=== PATIENT | male | born 1985 | race Caucasian/White ===

== ENCOUNTER 2017-02-11 04:23 | Emergency (ER) | payer BC ==
[2017-02-11 05:50] LABS: #Basophils 0.1 thou/uL (0.0-0.2); #Eosinphils 0.2 thou/uL (0.0-0.7); #Lymphocytes 3.1 thou/uL (1.20-3.40); #Monocytes 0.7 thou/uL (0.11-0.59); #Neutrophils 4.9 thou/uL (1.40-6.50); %Basophils 1.2 % (0.0-1.0); %Eosinophils 1.9 % (0.0-10.0); %Lymphocytes 34.8 % (21.0-51.0); %Monocytes 7.6 % (0.0-10.0); Hematocrit 45.9 % (42.0-52.0); Mean Platelet Volume 8.1 fL (7.4-10.4); Red Blood Cell (RBC) Count 4.81 mill/uL (4.70-6.10)
[2017-02-11] MEDS ORDERED: Ketorolac Tromethamine 30 MG/ML VIAL ONE (06:00)
[2017-02-11 06:13] LABS: Anion Gap 13 mmol/L (10-20); BUN (Urea Nitrogen) 9 mg/dL (8.9-20.6); Calc. Creatinine Clearance 0 mL/min (70-130); Calcium 9.5 mg/dL (7.8-10.44); Carbon Dioxide 23 mmol/L (22-29); Chloride 104 mmol/L (98-107); Estimated GFR-MDRD Greater than 90
[2017-02-11 06:26] LABS: Bilirubin Negative (Negative); Blood, Urine Negative (Negative); Glucose, Urine (Dipstick) Negative (Negative); Ketone, Urine Negative (Negative); Nitrite Negative (Negative); Protein, Urine (Dipstick) Negative (Neg-Trace)
[2017-02-11] MEDS ORDERED: Ondansetron HCl/PF 4 MG/2 ML Vial ONE ×2 (06:36→06:57)
[2017-02-11] MEDS ORDERED: Morphine 10 MG/ML VIAL ONE (06:36)
[2017-02-11] MEDS ORDERED: methylPREDNISolone Sod Succ/PF 125 MG/2 ML VIAL ONE (06:36)
[2017-02-11] MEDS ORDERED: Water For Inject, Bacteriostat 30 ML ONE (06:36)
--- NOTE | 2017-02-11 14:07 | CT ---
PRELIMINARY REPORT/[facility]/EMERGENCY AFTER HOURS PROCEDURE: EXAM: CT Abdomen and Pelvis Without Intravenous Contrast EXAM DATE/TIME: Exam ordered 02/11/2017 5:53 AM CLINICAL HISTORY: 31 years old, male; Pain; Abdominal pain; Flank; Left; Patient HX: R/O stone TECHNIQUE: Axial computed tomography images of the abdomen and pelvis without intravenous contrast. Coronal reformatted images were created and reviewed. COMPARISON: No relevant prior studies available. FINDINGS: Lower thorax: The visualized portions of the lung bases are normal. ABDOMEN: Liver: There are no focal liver lesions present. Gallbladder and bile ducts: The gallbladder is normal. There is no evidence of biliary ductal dilati on. No calcified stones. Pancreas: The pancreas is normal. No ductal dilation. Spleen: The spleen is normal. Adrenals: The adrenal glands are normal. Kidneys and ureters: The kidneys are normal. No obstructing stones. No hydronephrosis. Stomach and bowel: The duodenum is unremarkable. The stomach is normal. The colon is normal. No obstruction. No mucosal thickening. Appendix: A normal appendix is identified. PELVIS: Bladder: The bladder is normal. No stones. Reproductive: The prostate gland and seminal vesicles are normal. ABDOMEN and PELVIS: Intraperitoneal space: Normal. No free air. No significant fluid collection. Bones/joints: No acute fracture. No dislocation. Soft tissues: Normal. Vasculature: Normal. No abdominal aortic aneurysm. Lymph nodes: Normal. No enlarged lymph nodes. IMPRESSION: No acute abdominal pelvic pathology. Thank you for allowing us to participate in the care of your patient. Dictated and Authenticated by: Jc Arrington MD 02/11/2017 6:16 AM Central Time ([place] \T\ [place]) FINAL REPORT ABDOMEN AND PELVIC CT SCAN WITHOUT IV CONTRAST: EMERGENT AFTER HOURS EXAM TIME: 5:54 a.m. DATE: 02/11/17. No renal calculus or acute obstruction. No evidence for other significant acute process in the a bdomen or pelvis. POS: [facility]
== END 2017-02-11 07:02 | disposition home or self-care (01) ==
LOC: ERS 04:23
DX: S39.012A Strain of muscle, fascia and tendon of lower back, initial encounter (principal); F17.200 Nicotine dependence, unspecified, uncomplicated; X58.XXXA Exposure to other specified factors, initial encounter
CPT/HCPCS: 36415; 74176; 80048; 81003; 85025; 96374; 96375; J1885; J2270; J2405; J2930

== ENCOUNTER 2017-02-14 01:48 | Emergency (ER) | payer BC ==
[2017-02-14 02:43] LABS: Bilirubin Negative (Negative); Blood, Urine Negative (Negative); Glucose, Urine (Dipstick) Negative (Negative); Ketone, Urine Negative (Negative); Nitrite Negative (Negative); Protein, Urine (Dipstick) Negative (Neg-Trace); Urobilinogen 0.2 mg/dL (0.2-1.0)
[2017-02-14] MEDS ORDERED: Ketorolac Tromethamine 60 MG/2 ML VIAL ONE (02:49)
--- NOTE | 2017-02-14 08:03 | RAD ---
PA AND LATERAL VIEWS OF THE CHEST: HISTORY: Chest pain. FINDINGS: The heart size is normal. The lungs are clear. The bony thorax is normal. IMPRESSION: Normal exam. POS: [facility]
== END 2017-02-14 03:17 | disposition home or self-care (01) ==
LOC: ERS 01:48
DX: M54.9 Dorsalgia, unspecified (principal); R07.89 Other chest pain; F17.200 Nicotine dependence, unspecified, uncomplicated; Z79.52 Long term (current) use of systemic steroids
CPT/HCPCS: 71020; 81003; 93005; 96372; 99406; J1885